=== PATIENT | female | born 1930 | race Caucasian/White ===

== ENCOUNTER → 2017-08-20 | Day surgery (SDC) | payer OTHER ==
[~2017-08-20] VITALS: Ht 157.5 cm; Wt 58.1 kg
[~2017-08-20] MED LIST: ASPIRIN EC81 M1 PO; AUGMENTIN 500-1 EACH PO; CRESTOR20 M2 PO; ESTRACE42.5 GM VG; METOPROLOL TART25 M1 PO; OXYBUTYNIN CHLO10 M1 PO; SYNTHROID50 MCG PO
--- NOTE | 2017-08-20 13:33 | Operative Report ---
Operative/Inv Procedure Report Surgery Date: 08/20/17 Name of Procedure: urethral sling, cystoscopy Pre-Operative Diagnosis: stress incontinence Post-Operative Diagnosis: same Estimated Blood Loss: less than 50ml Surgeon/Program Management Specialist: Yamel Rivero MD Anesthesia: local monitored anesthesi Complications: none Condition: stable Operative Indication: stress incontinence Operative/Procedure Note Note: Operative dictation on patient Rebecca Cassidy. Patient was seen in the office for bothersome stress incontinence. She was given the risks benefits and alternatives of vaginal mesh specifically urethral sling. All questions were answered she wished to proceed. Patient was identified in the holding area brought to the operating placed on the operating table in the supine position. Timeout was performed and IV antibiotics were infused. IV sedation was started and she was placed in the dorsal lithotomy position. She was prepped and draped in the standard sterile fashion after being shaved in the genitalia region. A Kirby catheter was placed in the bladder was emptied. 1% lidocaine with epinephrine was infiltrated into the anterior vaginal wall beneath the urethra. Vaginal flaps are created taking care not to injure the urethra on the patient's left and right side. Dissection was carried to the retropubic space. The Altis Sling kit was then opened and the trochars provided were used to place the sling in a tension-free manner suburethrally in a flat orientation. The DeBakeys were please between the urethra and the sling when tightening the Prolene suture. There was copiously irrigated with bacitracin irrigation. There is no mesh in the vaginal fornices. The incision was closed with 3-0 Vicryl running locking suture. The Kirby catheter was removed and a cystoscopy was performed. The bladder was globally inspected and there were no abnormalities and the ureteral orifices were in their normal anatomic position. There was no indication of mesh in the bladder or the urethra. The bladder was emptied. Sponge and needle count were correct at the end the case. Vaginal packing was impregnated with bacitracin and placed in the vaginal vault. Patient tolerated the procedure well and was transferred to the recovery room in stable condition. Findings: No mesh in the bladder, urethral or vaginal fornices. Discharge Disposition: Same Day Admissions
== END ==
LOC: STS 03:37
DX: N39.3 Stress incontinence (female) (male) (principal); N32.81 Overactive bladder; N39.41 Urge incontinence; R39.198 Other difficulties with micturition; J44.9 Chronic obstructive pulmonary disease, unspecified; Z87.891 Personal history of nicotine dependence; I10 Essential (primary) hypertension; Z95.0 Presence of cardiac pacemaker; Z86.73 Personal history of transient ischemic attack (TIA), and cerebral infarction without residual deficits
CPT/HCPCS: C1771; J0131; J0744